=== PATIENT | male | born 1970 | race Caucasian/White ===

== ENCOUNTER 2018-07-06 10:33 | Observation (INO) | payer MEDICARE ==
[~2018-07-06] VITALS: Ht 190.5 cm; Wt 149.7 kg
--- NOTE | 2018-07-06 11:09 | PHYS DOC ---
Past Medical History Additional Past Medical Histor: muscular dystrophy Past Surgical History: No Surgical History Alcohol Use: None Drug Use: None Adult General Chief Complaint Chief Complaint: SWALLOWED FORIEGN BODY HPI HPI Patient is a 47 year old male who presents with difficulty swallowing. He took a large size [id number] antiallergy medicine yesterday evening and has been having difficulty swallowing ever since. Patient reports he is unable to swallow his saliva. Patient was exposed to dust and cat dander yesterday triggering the need for the allergy tablet. This is not happen to him before. Patient denies any difficulty breathing. Denies any nausea or vomiting or diarrhea. He has a history of having had previous esophageal dilation.[] Review of Systems Review of Systems Constitutional: Denies fever or chills [] Eyes: Denies change in visual acuity, redness, or eye pain [] HENT: Denies nasal congestion or sore throat [] Respiratory: Denies cough or shortness of breath [] Cardiovascular: No additional information not addressed in HPI [] GI: Denies abdominal pain, nausea, vomiting, bloody stools or diarrhea [] : Denies dysuria or hematuria [] Musculoskeletal: Denies back pain or joint pain [] Integument: Denies rash or skin lesions [] Neurologic: Denies headache, focal weakness or sensory changes [] Endocrine: Denies polyuria or polydipsia [] All other systems were reviewed and found to be within normal limits, except as documented in this note. Current Medications Current Medications Current Medications Medications (Trade) Dose Ordered Sig/Jennifer Start Time Stop Time Status Last Admin Dose Admin Citric Acid/ Sodium Citrate (Bicitra) 30 ml 1X ONCE 07/06/18 11:45 07/06/18 11:48 DC 07/06/18 12:11 30 ML Glucagon (Glucagen) 1 mg 1X ONCE 07/06/18 12:45 07/06/18 12:46 DC 07/06/18 12:52 1 MG Simethicone (Mylicon Drops) 160 mg 1X STAT 07/06/18 11:36 07/06/18 11:50 DC 07/06/18 12:12 160 MG Simethicone/ Sodium Bicarb/ Citric Ac (E-Z-Gas) 1 packet 1X ONCE 07/06/18 11:30 07/06/18 11:40 DC Sodium Bicarbonate (Sodium Bicarbonate) 1,300 mg 1X STAT 07/06/18 11:36 07/06/18 11:48 DC 07/06/18 12:11 1,300 MG Allergies Allergies Allergies Coded Allergies Type Severity Reaction Last Updated Verified No Known Drug Allergies 07/06/18 No Physical Exam Physical Exam Constitutional: Well developed, well nourished, no acute distress, non-toxic appearance. [] HENT: Normocephalic, atraumatic, bilateral external ears normal, oropharynx moist, no oral exudates, nose normal. [] Eyes: PERRLA, EOMI, conjunctiva normal, no discharge. [] Neck: Normal range of motion, no tenderness, supple, no stridor. [] Cardiovascular:Heart rate regular rhythm, no murmur [] Lungs & Thorax: Bilateral breath sounds clear to auscultation [] Abdomen: Bowel sounds normal, soft, no tenderness, no masses, no pulsatile masses. [] Skin: Warm, dry, no erythema, no rash. [] Back: No tenderness, no CVA tenderness. [] Extremities: No tenderness, no cyanosis, no clubbing, ROM intact, no edema. [] Neurologic: Alert and oriented X 3, normal motor function, normal sensory function, no focal deficits noted. [] Psychologic: Affect normal, judgement normal, mood normal. [] Current Patient Data Vital Signs Vital Signs Date Time Temp Pulse Resp B/P (MAP) Pulse Ox O2 Delivery O2 Flow Rate FiO2 07/06/18 11:00 96 167/87 (113) 95 07/06/18 10:50 98.4 16 Room Air 98.4 EKG EKG [] Radiology/Procedures Radiology/Procedures [] Course & Med Decision Making Course & Med Decision Making Pertinent Labs and Imaging studies reviewed. (See chart for details) ED course: Patient arrived, was placed in bed, in tolerated exam well. Attempted treatment with sodium bicarbonate, Bicitra, and simethicone as a gas forming agent. Patient did not tolerate this and no improvement in his symptoms after administration of this combination. IV access was subsequently established and he was given glucagon in an attempt to allow him to pass this foreign body again without any significant improvement. Due to this history of needing previous esophageal dilation and unable to swallow his saliva after multiple medication attempts, consultation was made with his primary care physician for admission. Consultation was also made with GI, Dr. Doshi, who evaluated the patient in the emergency department and is taking the patient to the EGD suite.[] Dragon Disclaimer Dragon Disclaimer This electronic medical record was generated, in whole or in part, using a voice recognition dictation system. Departure Departure Impression: Primary Impression: Esophageal foreign body Disposition: ADMITTED INPATIENT Admitting Physician: Rolando Tee Condition: IMPROVED Referrals: Mike TEE MD (PCP) Problem Qualifiers Primary Impression: Esophageal foreign body Encounter type: initial encounter Qualified Codes: T18.108A - Unspecified foreign body in esophagus causing other injury, initial encounter BELGICAVAN QIU Jul 06, 2018 11:09
[2018-07-06] MEDS ORDERED: SIMETHICONE/SOD BICARB/CITRIC ACID PACKET. PO ONE (11:30)
[2018-07-06] MEDS ORDERED: SIMETHICONE DROPS 40 MG/0.6 ML ORAL SUSPENSION. PO STA (11:36)
[2018-07-06] MEDS ORDERED: SODIUM BICARBONATE 650 MG TABLET. PO STA (11:36)
[2018-07-06] MEDS ORDERED: CITRIC ACID/SODIUM CITRATE 30 ML SOLUTION. PO ONE (11:45)
[2018-07-06] MEDS ORDERED: GLUCAGON,HUMAN RECOMBINANT 1 MG/ML VIAL. IV ONE (12:45)
[2018-07-06] MEDS ORDERED: ONDANSETRON PF 4 MG/2 ML VIAL. IV PRN (14:00)
[2018-07-06] MEDS ORDERED: PROPOFOL 20 ML IV ONE (14:39)
[2018-07-06] MEDS ORDERED: SUCCINYLCHOLINE 200 MG/10 ML VIAL. ONE (14:39)
[2018-07-06] MEDS ORDERED: DEXAMETHASONE SOD PHOS 20 MG/5 ML VIAL. ONE (14:39)
[2018-07-06] MEDS ORDERED: ONDANSETRON PF 4 MG/2 ML VIAL. ONE (14:39)
[2018-07-06] MEDS ORDERED: FAMOTIDINE 20 MG/2 ML VIAL ONE (14:39)
[2018-07-06] MEDS ORDERED: LIDOCAINE 2% PF 5 ML VIAL. ONE (14:39)
[2018-07-06] MEDS ORDERED: METF500T16 PO (14:54)
[2018-07-06] MEDS ORDERED: METO-239 PO (14:56)
[2018-07-06] MEDS ORDERED: LISI-130 PO (14:56)
[2018-07-06] MEDS ORDERED: GLIM2TAB2 PO (14:57)
[2018-07-06] MEDS ORDERED: IV RINGERS,LACTATED 1000ML 1,000 ML IV SCH (16:00)
[2018-07-06 16:14] VITALS: BP 137/81
--- NOTE | 2018-07-06 16:19 | PDOC2 ---
GI CONSULT Reason For Consult: Foreign body in the esophagus. HPI: HPI: Delfino Woodward is a 47 years old male patient with past medical history of morbid obesity, hypertension sleep apnea on CPAP and muscular dystrophy involving the shoulders and left lower extremity. He also reports to have intermittent dysphagia for several years that required upper endoscopic exam 1 5 years ago. He presented to ED today with foreign body in the esophagus. He reports he was taking "allergy pill" last night and he felt like it "impacted in the food pipe ". He has not been able to swallow any thing including his own secretion. He has been spiting and drooling of saliva since then. He has exertional sob but denies chest pain or PND. No fever, chills or sweating. He has reflux symptoms at base line and has been taking acid suppressions pills on and off. He has a good appetite and has not lost weight. He denies childhood asthma but reports to have history of seasonal allergies. He denies family history of esophageal or stomach cancer. He has strong family history of asthma. PMH: PMH: Morbid obesity,obstructive sleep apnea, hypertension and muscular dystrophy. FH: Family History: CAD, Other (Asthma) Social History: Smoke: No ROS: GEN: Denies fevers, chills, sweats HEENT: Denies blurred vision, sore throat CV: Denies chest pain RESP: Denies shortness of air, cough GI: Per HPI : Denies hematuria, dysuria ENDO: Denies weight changes NEURO: Denies confusion, dizziness MSK: Denies weakness, joint pain/swelling SKIN: Denies jaundice, pruritus Vitals: Vitals: Vital Signs Date Time Temp Pulse Resp B/P (MAP) Pulse Ox O2 Delivery O2 Flow Rate FiO2 07/06/18 15:44 97.5 94 16 136/98 99 Simple Mask 10 97.5 Allergies: Coded Allergies: No Known Drug Allergies (Unverified , 07/06/18) Medications: Current Medications Medications (Trade) Dose Ordered Sig/Jennifer Route PRN Reason Start Time Stop Time Status Last Admin Dose Admin Sodium Bicarbonate (Sodium Bicarbonate) 1,300 mg 1X STAT PO 07/06/18 11:36 07/06/18 11:48 DC 07/06/18 12:11 Citric Acid/ Sodium Citrate (Bicitra) 30 ml 1X ONCE PO 07/06/18 11:45 07/06/18 11:48 DC 07/06/18 12:11 Simethicone (Mylicon Drops) 160 mg 1X STAT PO 07/06/18 11:36 07/06/18 11:50 DC 07/06/18 12:12 Glucagon (Glucagen) 1 mg 1X ONCE IV 07/06/18 12:45 07/06/18 12:46 DC 07/06/18 12:52 Ringer's Solution 1,000 ml @ 75 mls/hr [id number] IV 07/06/18 16:00 07/06/18 15:20 PE: GEN: NAD HEENT: Atraumatic, PERRLA LUNGS: CTAB. CHEST: No surgical emphysema or subcutaneous crepitation. HEART: RRR, no murmurs ABD: NABS, S/ND/NT, no masses EXTREMITY: No edema SKIN: No rashes, no jaundice NEURO/PSYCH: A & O 3 A/P: A/P: 47 years old male patient with past medical history of morbid obesity, hypertension sleep apnea on CPAP and muscular dystrophy involving the shoulders and left lower extremity. He presented with foreign body impaction in the esophagus. Recommendations: - Keep patient NPO. - Proceed with urgent upper endoscopic exam. I have discussed the possible complications of EGD including but not limited to aspirations, bleeding and perforations. - We will give further recs based on upper endoscopic findings. Thank you for involving us in the care of this interesting patient. PHILLIP JOHNSON MD Jul 06, 2018 16:19
--- NOTE | 2018-07-06 16:34 | PDOC4 ---
PROCEDURE Procedure Procedure: Urgent EGD. Indications: Foreign body impaction in the esophagus. Medication: General anesthesia. Findings - After patient was sedated and intubated, the scope was advanced carefully to the esophagus. - The upper and mid third esophagus appeared normal with no evidence of inflammations, strictures, masses or foreign body. Biopsies obtained from distal and proximal esophagus to rule out EoE. - There was evidence of Grade A esophagitis in the distal esophagus but no stricture or mass was noted. - The scop was advanced to stomach with no significant resistance. There was evidence of large white pill in the gastric fundus on retroflexion.The entire gastric mucosa appeared normal. No inflammations, ulcerations or masses seen. Recommendations - Protonix 40mg BID for 12 weeks. - Full liquid diets at this time. - Antireflux measures. - Await pathology report. - F/u with me in clinic in two weeks. - Can be discharged home. Patient and family advised that he should not operate any motorized vehicle today. He should also be advised not to drink alcohol. Thank you for involving us in the care of this interesting patient. PHILLIP JOHNSON MD Jul 06, 2018 16:34
--- NOTE | 2018-07-06 18:23 | NUR ---
Please refer to GI operative notes regarding discharge
--- NOTE | 2018-07-08 17:07 | PATHOLOGY ---
[facility] Accession Number: [id number] . 01 Material submitted: . PART A: DISTAL ESOPHAGUS BIOPSY PART B: PROXIMAL ESOPHAGUS BIOPSY . 01 Clinical history: . Dysphagia, FBR . 02 Diagnosis: A. Esophageal biopsy, distal esophagus: - Segments of mildly hyperplastic squamous esophageal mucosa. . B. Esophageal biopsy, proximal esophagus: - Segments of mildly hyperplastic squamous esophageal mucosa with few intraepithelial eosinophils. (JPM:jordan; 07/08/2018) QMS/07/08/2018 . 02 Comment: Sections of the distal esophageal biopsy reveal segments of mildly hyperplastic squamous esophageal mucosa. Focally, there are a few intraepithelial neutrophils and eosinophils. The findings are consistent with reflux esophagitis. There is no evidence of an eosinophilic esophagitis. There is no evidence of Monge's change, dysplasia, or malignancy. . Sections of the proximal esophageal biopsy reveal segments of tangentially oriented, mildly hyperplastic squamous esophageal mucosa. There are a few intraepithelial eosinophils. In the area of highest concentration, there are less than 10 eosinophils per high power field. The findings are consistent with reflux esophagitis. There is no evidence of an eosinophilic esophagitis. (JPM:jordan; 07/08/2018) . 02 Electronically signed: . Waldo Donovan MD, Pathologist NPI- [id number] . 01 Gross description: . A. Received in formalin labeled "Delfino Woodward, distal esophagus BX," are 2 segments of guzman soft tissue measuring 0.6 x 0.2 x 0.1 cm in aggregate dimensions and measuring 0.3 cm each in maximum dimension. The specimen is submitted entirely in cassette A1. . B. Received in formalin labeled "Delfino Woodward, proximal esophagus BX," are 3 segments of guzman soft tissue measuring 0.5 x 0.4 x 0.1 cm in aggregate dimensions and ranging from 0.3 to 0.4 cm in maximum dimension. The specimen is submitted entirely in cassette B1. (TSD; 07/07/2018) TOB/TOB . 02 Pathologist provided ICD-10: R13.10 . 02 CPT . 267545, [id number] Specimen Comment: A courtesy copy of this report has been sent to Specimen Comment: [phone], , . Specimen Comment: Report sent to ,DR TEE / DR LINDO Specimen Comment: A duplicate report has been generated due to demographic updates. Performed at: 01 [facility] [address], [place] [id number] MD Gavin Castaneda MD Phone: [phone] Performed at: 02 [facility] [address] [place], [place] [id number] MD Waldo Donovan MD Phone: [phone]
== END 2018-07-06 18:24 | disposition home or self-care (01) ==
LOC: ER 10:33 → 5 SOUTH 14:36
PROVIDERS: ADMIT Family Medicine; ATTEND Family Medicine
DX: T18.108A Unspecified foreign body in esophagus causing other injury, initial encounter (principal); X58.XXXA Exposure to other specified factors, initial encounter; Y93.89 Activity, other specified; Y92.89 Other specified places as the place of occurrence of the external cause; K20.9 Esophagitis, unspecified; I10 Essential (primary) hypertension; G47.33 Obstructive sleep apnea (adult) (pediatric); G71.00 Muscular dystrophy, unspecified; Z82.49 Family history of ischemic heart disease and other diseases of the circulatory system; Z82.5 Family history of asthma and other chronic lower respiratory diseases
CPT/HCPCS: 43239; 88305; 96374; 99284; G0378; G0379; J0330; J1100; J1610; J2001; J2405; J2704; J3490; 43247; J7120

== ENCOUNTER 2020-11-28 06:33 | Emergency (ER) | payer MEDICARE, BC ==
[~2020-11-28] VITALS: Ht 193 cm; Wt 159.0 kg
[~2020-11-28 06:33] MED LIST: GLIM2TAB7 PO; LISI-130 PO; METF500T16 PO; METO-239 PO
[2020-11-28] MEDS ORDERED: LEVO50TA78 PO (07:18)
[2020-11-28] MEDS ORDERED: OMEP40CA7 PO (07:18)
[2020-11-28] MEDS ORDERED: LISI1TAB20 PO (07:18)
[2020-11-28] MEDS ORDERED: BREO (07:18)
[2020-11-28] MEDS ORDERED: [UNRECOGNIZED DRUG - CODE] (07:18)
[2020-11-28] MEDS ORDERED: INSU100I32 SQ (07:18)
--- NOTE | 2020-11-28 08:09 | RAD ---
EXAM: Chest, single view. HISTORY: Shortness of breath. COMPARISON: None. FINDINGS: A frontal view of the chest is obtained. There is mild diffuse increased interstitial opaci ty. There are trace pleural effusions. There is no pneumothorax. The heart is normal in size. IMPRESSION: Mild diffuse increased interstitial opacity with trace pleural effusions. No consolidated infiltrate is seen. Electronically signed by: Suad Walker MD (11/28/2020 8:07 AM) [id number]
--- NOTE | 2020-11-28 08:17 | ED.ADGEN ---
Past Medical History Additional Past Medical Histor: Facioscapulohumeral muscular dystrophy (FSHD)MS Past Surgical History: No Surgical History Smoking Status: Never Smoker Alcohol Use: None Drug Use: None General Adult EDM: Chief Complaint: ABDOMINAL PAIN HPI: HPI: Patient is a 50-year-old male with past medical history of muscular dystrophy who presents to the emergency room complaining of bilateral upper abdominal pain. Patient states that he woke up around 4:00 this morning and relates that he was having pain. He states that the pain really only happens when he takes a deep breath but it occurs on both sides of his chest. He states he felt fine when he went to bed last night. He denies any cough, congestion, chest pain, shortness of breath, nausea, vomiting, diarrhea, fever, chills, sweats. He is never had pain like this previously. He states that it feels like a sharp sudden pain. He states the pain goes away if he relaxes. Review of Systems: Review of Systems: Complete ROS is negative unless otherwise documented in HPI Current Medications: Current Medications Medications (Trade) Dose Ordered Sig/Jennifer Start Time Stop Time Status Last Admin Dose Admin Ceftriaxone Sodium (Rocephin) 1 gm 1X ONCE 11/28/20 13:00 11/28/20 13:01 Dexamethasone Sodium Phosphate (Decadron) 10 mg 1X ONCE 11/28/20 13:00 11/28/20 13:01 Ketorolac Tromethamine (Toradol 30mg Vial) 30 mg 1X ONCE 11/28/20 13:00 11/28/20 13:01 Sodium Chloride 1,000 ml @ 1,000 mls/hr 1X ONCE 11/28/20 11:00 11/28/20 11:59 DC 11/28/20 11:02 1,000 MLS/HR Allergies: Allergies: Allergies Coded Allergies Type Severity Reaction Last Updated Verified No Known Drug Allergies 07/06/18 No Physical Exam: PE: General: Awake, alert, NAD. Well Nourished, well hydrated. Cooperative HEENT: Atraumatic, EOMI, PERRL, airway patent, moist oral mucosa Neck: Supple, trachea midline Respiratory: CTA bilaterally, normal effort, no wheezing/crackles CV: Tachycardia, no murmur, cap refill <2 GI: Soft, nondistended, nontender, no masses MSK: No obvious deformities Skin: Warm, dry, intact Neuro: A&O x3, speech NL, sensory and motor grossly intact, no focal deficits Psych: Normal affect, normal mood, not suicidal or homicidal Current Patient Data: Labs: Laboratory Tests Test 11/28/20 07:40 11/28/20 11:08 White Blood Count 12.5 x10^3/uL (4.0-11.0) H Red Blood Count 5.04 x10^6/uL (4.30-5.70) Hemoglobin 15.7 g/dL (13.0-17.5) Hematocrit 46.2 % (39.0-53.0) Mean Corpuscular Volume 92 fL (79-100) Mean Corpuscular Hemoglobin 31 pg (25-35) Mean Corpuscular Hemoglobin Concent 34 g/dL (31-37) Red Cell Distribution Width 14.6 % (11.5-14.5) H Platelet Count 220 x10^3/uL (140-400) Neutrophils (%) (Auto) 66 % (31-73) Lymphocytes (%) (Auto) 23 % (24-48) L Monocytes (%) (Auto) 8 % (0-9) Eosinophils (%) (Auto) 2 % (0-3) Basophils (%) (Auto) 0 % (0-3) Neutrophils # (Auto) 8.3 x10^3/uL (1.8-7.7) H Lymphocytes # (Auto) 2.9 x10^3/uL (1.0-4.8) Monocytes # (Auto) 0.9 x10^3/uL (0.0-1.1) Eosinophils # (Auto) 0.3 x10^3/uL (0.0-0.7) Basophils # (Auto) 0.0 x10^3/uL (0.0-0.2) D-Dimer (Sindhu) 0.36 ug/mlFEU (0.00-0.50) Sodium Level 138 mmol/L (136-145) Potassium Level 3.1 mmol/L (3.5-5.1) L Chloride Level 98 mmol/L (98-107) Carbon Dioxide Level 35 mmol/L (21-32) H Anion Gap 5 (6-14) L Blood Urea Nitrogen 12 mg/dL (8-26) Creatinine 0.4 mg/dL (0.7-1.3) L Estimated GFR (Cockcroft-Gault) 229.6 BUN/Creatinine Ratio 30 (6-20) H Glucose Level 197 mg/dL (70-99) H Calcium Level 9.4 mg/dL (8.5-10.1) Total Bilirubin 0.6 mg/dL (0.2-1.0) Aspartate Amino Transferase (AST) 37 U/L (15-37) Alanine Aminotransferase (ALT) 84 U/L (16-63) H Alkaline Phosphatase 51 U/L (46-116) Troponin I Quantitative < 0.017 ng/mL (0.000-0.055) Total Protein 7.3 g/dL (6.4-8.2) Albumin 3.6 g/dL (3.4-5.0) Albumin/Globulin Ratio 1.0 (1.0-1.7) Lipase 203 U/L (73-393) Urine Collection Type Void Urine Color Yellow Urine Clarity Clear Urine pH 5.5 (<5.0-8.0) Urine Specific Nezperce >=1.030 (1.000-1.030) Urine Protein Negative mg/dL (NEG-TRACE) Urine Glucose (UA) >=1000 mg/dL (NEG) Urine Ketones (Stick) >=80 mg/dL (NEG) Urine Blood Negative (NEG) Urine Nitrite Negative (NEG) Urine Bilirubin Small (NEG) Urine Urobilinogen Dipstick 1.0 mg/dL (0.2 mg/dL) Urine Leukocyte Esterase Negative (NEG) Urine RBC Rare /HPF (0-2) Urine WBC Occ /HPF (0-4) Urine Squamous Epithelial Cells Mod /LPF Urine Bacteria 0 /HPF (0-FEW) Urine Hyaline Casts Occasional /HPF Urine Mucus Mod /LPF Laboratory Tests 11/28/20 07:40 Laboratory Tests 11/28/20 07:40 Vital Signs: Vital Signs Date Time Temp Pulse Resp B/P (MAP) Pulse Ox O2 Delivery O2 Flow Rate FiO2 11/28/20 06:33 98.6 109 18 167/79 (99) 94 Room Air 98.6 EKG: EKG: [] Heart Score: C/O Chest Pain: N/A Risk Factors: Risk Factors: DM, Current or recent (<one month) smoker, HTN, HLP, family history of CAD, obesity. Risk Scores: Score 0 - 3: 2.5% MACE over next 6 weeks - Discharge Home Score 4 - 6: 20.3% MACE over next 6 weeks - Admit for Clinical Observation Score 7 - 10: 72.7% MACE over next 6 weeks - Early Invasive Strategies Radiology/Procedures: Radiology/Procedures: [] Course & Med Decision Making: Course & Med Decision Making Pertinent Labs and Imaging studies reviewed. (See chart for details) Patient is a 50-year-old male presents to the emergency room with bilateral upper abdominal pain when he takes deep breath. Patient's presentation may be related to the abdomen, however pain could be related to the lower parts of the lungs given that his pain is only with deep breaths. Chest x-ray, EKG, troponin, D-dimer were done to evaluate for any cardiothoracic pathology including pulmonary embolism, ACS, pneumonia. Abdominal lab work including liver enzymes, lipase, UA were done to evaluate for any abdominal pathology including pancreatitis, acute cholecystitis, hepatitis. Patient does not want anything for pain at this time. EKG shows sinus tachycardia without signs of a STEMI. He does have some chronic changes. He did have a mildly elevated ALT. Attempted to do an ultrasound which was nondiagnostic. CT abdomen pelvis was done which appears to be normal at this time. Patient does appear to have bilateral infiltrates. This is concerning for possible pneumonia. Patient remains tachycardic here in the emergency room. D-dimer is negative. Did give him a liter of fluids due to the dehydration and ketones in his urine, however This Did Not Seem to Improve His Symptoms. We will start him on Rocephin. He has a pending Covid test. Patient will also be given Decadron. He will be admitted to Dr. Flores. Asael Disclaimer: Asael Disclaimer: This electronic medical record was generated, in whole or in part, using a voice recognition dictation system. Departure Departure Impression: Primary Impression: Pneumonia Additional Impressions: Sepsis Person under investigation for COVID-19 Disposition: ADMITTED INPATIENT Condition: STABLE Referrals: Mike TEE MD (PCP) Problem Qualifiers LEONIDAS TORRES MD Nov 28, 2020 08:17
[2020-11-28 08:23] LABS: CALCIUM 9.4 mg/dL (8.5-10.1); CREATININE 0.4 mg/dL (0.7-1.3); GFR 229.6; POTASSIUM 3.1 mmol/L (3.5-5.1)
[2020-11-28 08:27] LABS: BASO % 0 % (0-3); EOS # 0.3 x10^3/uL (0.0-0.7); EOS % 2 % (0-3); HEMATOCRIT 46.2 % (39.0-53.0); HEMOGLOBIN 15.7 g/dL (13.0-17.5); LYMPH # 2.9 x10^3/uL (1.0-4.8); LYMPH % 23 % (24-48); MEAN CORPUSCULAR HEMOGLOBIN 31 pg (25-35); MEAN CORPUSCULAR HGB CONC 34 g/dL (31-37); MEAN CORPUSCULAR VOLUME 92 fL (79-100); MONO # 0.9 x10^3/uL (0.0-1.1); MONO % 8 % (0-9); NEUT # 8.3 x10^3/uL (1.8-7.7); NEUT % 66 % (31-73); PLATELET COUNT 220 x10^3/uL (140-400); RED BLOOD COUNT 5.04 x10^6/uL (4.30-5.70); RED CELL DISTRIBUTION WIDTH 14.6 % (11.5-14.5); WHITE BLOOD COUNT 12.5 x10^3/uL (4.0-11.0)
[2020-11-28 08:29] LABS: ALBUMIN 3.6 g/dL (3.4-5.0); TOTAL BILIRUBIN 0.6 mg/dL (0.2-1.0); TOTAL PROTEIN 7.3 g/dL (6.4-8.2)
--- NOTE | 2020-11-28 09:56 | RAD ---
EXAM: Abdomen sonogram. HISTORY: Right upper quadrant pain. Abnormal liver function laboratory values. TECHNIQUE: Sonographic imaging of the abdomen was performed. COMPARISON: None. FINDINGS: The exam is limited due to bowel gas. There is hepatic steatosis and suspected mild hepatom egaly. No focal hepatic lesion is seen. The gallbladder, common bile duct, inferior vena cava and martinez creas are obscured due to bowel gas. The right kidney is unremarkable. IMPRESSION: 1. Hepatic steatosis and suspected hepatomegaly. 2. Limited evaluation due to bowel gas. Electronically signed by: Suad Walker MD (11/28/2020 9:53 AM) [id number]
[2020-11-28] MEDS ORDERED: IV NORMAL SALINE 1000ML BAG 1,000 ML IV ONE (11:00)
[2020-11-28 11:22] LABS: BILIRUBIN,URINE SMALL (NEG); CLARITY,URINE CLEAR; COLOR,URINE YELLOW; NITRITE,URINE NEGATIVE (NEG); PH,URINE 5.5 (<5.0-8.0); PROTEIN,URINE NEGATIVE (NEG-TRACE)
[2020-11-28 11:34] LABS: BACTERIA,URINE 0 /HPF (0-FEW); HYALINE CASTS, URINE OCCASIONAL /HPF; RBC,URINE RARE /HPF (0-2); WBC,URINE OCC /HPF (0-4)
--- NOTE | 2020-11-28 12:00 | RAD ---
Exam Date: 11/28/2020 11:[address] ABDOMEN+PELVIS WO Indication: Reason: upper abd pain / Spl. Instructions: / History: . TECHNIQUE: CT examination of the abdomen and pelvis was performed without oral or intravenous contra st. One or more of the following dose reduction techniques were utilized: *Automated exposure control (AEC) *Adjustment of mA and/or kV according to patient size *Use of iterative reconstruction technique *CT scan done according to ALARA, or ALARA/IMAGE GENTLY FINDINGS: The visualized lung bases demonstrate subsegmental atelectasis. The liver, gallbladder, spleen, pancreas, and adrenal glands are normal. The kidneys are normal bilaterally. No hydronephrosis or hydroureter is seen. No urinary tract calc robbin are seen. Urinary bladder is normal in appearance. There is no bowel obstruction or inflammation. No evidence of acute appendicitis. No significant atherosclerotic calcifications are seen. No lymphadenopathy or ascites is seen. Degenerative changes are seen in the spine. IMPRESSION: No acute intra-abdominal pathology. Normal appearance of the kidneys and bladder. No hydronephrosis or hydroureter. No urinary tract ca lculi. Bibasilar subsegmental atelectasis noted. Electronically signed by: Ron Blevins MD (11/28/2020 11:58 AM) [id number]
[2020-11-28] MEDS ORDERED: cefTRIAXone IV Push 1 GM VIAL. IVP ONE ×2 (12:15→13:00)
[2020-11-28] MEDS ORDERED: DEXAMETHASONE SOD PHOS 4 MG/ML VIAL IVP ONE (13:00)
[2020-11-28] MEDS ORDERED: KETOROLAC 30 MG/ML VIAL. IVP ONE (13:00)
[2020-11-28 14:03] LABS: BASE EXCESS COOX 6 mmol/L (-3-3); HCO3 COOX 30 mmol/L (21-28); METHEMOGLOBIN 0.4 % (0.0-1.9); OXYHEMOGLOBIN 91.2 %; PCO2 COOX 44 mmHg (35-46); PO2 COOX 61 mmHg (75-108); SAT O2 COOX 92 % (92-99)
[2020-11-28] MEDS ORDERED: FLUT1AER2 (16:12)
[2020-11-28 16:52] VITALS: BP 137/83
--- NOTE | 2020-11-28 20:55 | HP ---
ADMIT DATE: 11/28/2020 CHIEF COMPLAINT: Abdominal pain. HISTORY OF PRESENT ILLNESS: The patient is a pleasant middle-aged male who has muscular dystrophy. He presents today with abdominal pain. Imaging studies have shown bilateral pneumonia, is also a little septic. We were concerned he could have COVID-19. He is not vaccinated. I discussed the case with ER physician. We are going to admit the patient and consult Pulmonary Medicine. PAST MEDICAL HISTORY: Muscular dystrophy, hypertension, hyperlipidemia, diabetes, was just started on insulin. ALLERGIES: None. FAMILY HISTORY: Diabetes. SOCIAL HISTORY: He does not drink, smoke or take drugs. MEDICATIONS: Medications were reviewed. Please refer to the MRAD. REVIEW OF SYSTEMS: GENERAL: He complains of weakness. SKIN: No bruising, hair changes or rashes. EYES: No blurred, double or loss of vision. NOSE AND THROAT: No history of nosebleeds, hoarseness or sore throat. HEART: No history of palpitations, chest pain or shortness of breath on exertion. LUNGS: He complains of shortness of breath. GASTROINTESTINAL: He complains of abdominal pain. GENITOURINARY: No history of frequency, urgency, hesitancy or nocturia. NEUROLOGIC: Denies history of numbness, tingling, tremor or weakness. PSYCHIATRIC: No history of panic, anxiety or depression. ENDOCRINE: No history of heat or cold intolerance, polyuria or polydipsia. EXTREMITIES: Denies muscle weakness, joint pain, pain on walking or stiffness. PHYSICAL EXAMINATION: VITALS: Within normal limits and are stable. GENERAL: No apparent distress. Alert and oriented. HEENT: Normal cephalic atraumatic, external auditory canals are patent. EYES: Extraocular muscles are intact, pupils are equally round and reactive to light and accommodation. MUSCULOSKELETAL: Well developed, well nourished, good range of motion. ENDOCRINE: No thyromegaly was palpated. LYMPHATICS: No cervical chain or axillary nodes were noted. HEMATOPOIETIC: No bruising. NECK: Supple, no JVD, no thyromegaly was noted. LUNGS: Clear to auscultation in all lung cage without rhonchi or wheezing. HEART: RRR, S1, S2 present. Peripheral pulses intact, no obvious murmurs were noted. ABDOMEN: Soft, nontender. Positive bowel sounds no organomegaly, normal bowel sounds. EXTREMITIES: Without any cyanosis, clubbing, or edema. Pedal pulses intact, Homans sign is negative. NEUROLOGIC: He is quite weak, which is consistent with his muscular dystrophy. PSYCHIATRIC: Normal affect, normal mood. Stable. SKIN: No ulcerations or rashes, good skin turgor, no jaundice. VASCULAR: Good capillary refill, neurovascular bundle appears to be intact. LABORATORY DATA: White count is 12.5. Sodium is 138, potassium 3.1, chloride 98, bicarbonate 35, BUN 12, creatinine 0.4, glucose 197. Urinalysis negative. D-dimer 0.36. Chest x-ray shows trace pleural effusion. Mild diffuse increased interstitial opacity. CT of the chest shows some bibasilar subsegmental atelectasis. Ultrasound of the abdomen shows hepatic steatosis and hepatomegaly. ASSESSMENT AND PLAN: Abdominal pain, possible pneumonia, abnormal imaging studies (please see above) in a middle-aged male who has muscular dystrophy. The patient has been admitted. We will rule out COVID-19. Consult Pulmonary Medicine. Home meds. DVT prophylaxis. Full code. Check an ABG. He got one dose of dexamethasone in the ER, got one dose of ceftriaxone in the ER. We will await to continue this until Pulmonary sees the patient. Respiratory isolation. Long-term prognosis is guarded. BARB DR: Gaye TID: [id number]
--- NOTE | 2020-11-29 10:38 | PDOC ---
PULMONARY PROGRESS NOTES DATE: 11/29/20 TIME: 10:38 Vitals Vital Signs Date Time Temp Pulse Resp B/P (MAP) Pulse Ox O2 Delivery O2 Flow Rate FiO2 11/28/20 16:52 104 29 137/83 (101) 93 Room Air Labs Laboratory Tests Test 11/28/20 07:40 11/28/20 10:56 11/28/20 11:08 11/28/20 12:48 White Blood Count 12.5 x10^3/uL (4.0-11.0) Red Blood Count 5.04 x10^6/uL (4.30-5.70) Hemoglobin 15.7 g/dL (13.0-17.5) Hematocrit 46.2 % (39.0-53.0) Mean Corpuscular Volume 92 fL (79-100) Mean Corpuscular Hemoglobin 31 pg (25-35) Mean Corpuscular Hemoglobin Concent 34 g/dL (31-37) Red Cell Distribution Width 14.6 % (11.5-14.5) Platelet Count 220 x10^3/uL (140-400) Neutrophils (%) (Auto) 66 % (31-73) Lymphocytes (%) (Auto) 23 % (24-48) Monocytes (%) (Auto) 8 % (0-9) Eosinophils (%) (Auto) 2 % (0-3) Basophils (%) (Auto) 0 % (0-3) Neutrophils # (Auto) 8.3 x10^3/uL (1.8-7.7) Lymphocytes # (Auto) 2.9 x10^3/uL (1.0-4.8) Monocytes # (Auto) 0.9 x10^3/uL (0.0-1.1) Eosinophils # (Auto) 0.3 x10^3/uL (0.0-0.7) Basophils # (Auto) 0.0 x10^3/uL (0.0-0.2) D-Dimer (Sindhu) 0.36 ug/mlFEU (0.00-0.50) Sodium Level 138 mmol/L (136-145) Potassium Level 3.1 mmol/L (3.5-5.1) Chloride Level 98 mmol/L (98-107) Carbon Dioxide Level 35 mmol/L (21-32) Anion Gap 5 (6-14) Blood Urea Nitrogen 12 mg/dL (8-26) Creatinine 0.4 mg/dL (0.7-1.3) Estimated GFR (Cockcroft-Gault) 229.6 BUN/Creatinine Ratio 30 (6-20) Glucose Level 197 mg/dL (70-99) Calcium Level 9.4 mg/dL (8.5-10.1) Total Bilirubin 0.6 mg/dL (0.2-1.0) Aspartate Amino Transf (AST/SGOT) 37 U/L (15-37) Alanine Aminotransferase (ALT/SGPT) 84 U/L (16-63) Alkaline Phosphatase 51 U/L (46-116) Troponin I Quantitative < 0.017 ng/mL (0.000-0.055) Total Protein 7.3 g/dL (6.4-8.2) Albumin 3.6 g/dL (3.4-5.0) Albumin/Globulin Ratio 1.0 (1.0-1.7) Lipase 203 U/L (73-393) SARS-CoV-2 RNA (AARON) Negative (Negative) Urine Collection Type Void Urine Color Yellow Urine Clarity Clear Urine pH 5.5 (<5.0-8.0) Urine Specific [place] >=1.030 (1.000-1.030) Urine Protein Negative mg/dL (NEG-TRACE) Urine Glucose (UA) >=1000 mg/dL (NEG) Urine Ketones (Stick) >=80 mg/dL (NEG) Urine Blood Negative (NEG) Urine Nitrite Negative (NEG) Urine Bilirubin Small (NEG) Urine Urobilinogen Dipstick 1.0 mg/dL (0.2 mg/dL) Urine Leukocyte Esterase Negative (NEG) Urine RBC Rare /HPF (0-2) Urine WBC Occ /HPF (0-4) Urine Squamous Epithelial Cells Mod /LPF Urine Bacteria 0 /HPF (0-FEW) Urine Hyaline Casts Occasional /HPF Urine Mucus Mod /LPF O2 Saturation 92 % (92-99) Arterial Blood pH 7.45 (7.35-7.45) Arterial Blood pCO2 at Patient Temp 44 mmHg (35-46) Arterial Blood pO2 at Patient Temp 61 mmHg (75-108) Arterial Blood HCO3 30 mmol/L (21-28) Arterial Blood Base Excess 6 mmol/L (-3-3) Oxyhemoglobin 91.2 % Methemoglobin 0.4 % (0.0-1.9) Carbon Monoxide, Quantitative 0.9 % (0.0-1.9) FiO2 21 Laboratory Tests Test 11/28/20 10:56 11/28/20 11:08 11/28/20 12:48 SARS-CoV-2 RNA (AARON) Negative (Negative) Urine Collection Type Void Urine Color Yellow Urine Clarity Clear Urine pH 5.5 (<5.0-8.0) Urine Specific [place] >=1.030 (1.000-1.030) Urine Protein Negative mg/dL (NEG-TRACE) Urine Glucose (UA) >=1000 mg/dL (NEG) Urine Ketones (Stick) >=80 mg/dL (NEG) Urine Blood Negative (NEG) Urine Nitrite Negative (NEG) Urine Bilirubin Small (NEG) Urine Urobilinogen Dipstick 1.0 mg/dL (0.2 mg/dL) Urine Leukocyte Esterase Negative (NEG) Urine RBC Rare /HPF (0-2) Urine WBC Occ /HPF (0-4) Urine Squamous Epithelial Cells Mod /LPF Urine Bacteria 0 /HPF (0-FEW) Urine Hyaline Casts Occasional /HPF Urine Mucus Mod /LPF O2 Saturation 92 % (92-99) Arterial Blood pH 7.45 (7.35-7.45) Arterial Blood pCO2 at Patient Temp 44 mmHg (35-46) Arterial Blood pO2 at Patient Temp 61 mmHg (75-108) Arterial Blood HCO3 30 mmol/L (21-28) Arterial Blood Base Excess 6 mmol/L (-3-3) Oxyhemoglobin 91.2 % Methemoglobin 0.4 % (0.0-1.9) Carbon Monoxide, Quantitative 0.9 % (0.0-1.9) FiO2 21 Medications Active Scripts Medications Dose Route/Sig Max Daily Dose Days Date Category Breo Ellipta 100-25 Mcg INH (Fluticasone/Vilanterol) 1 Each Blst.w.dev 11/28/20 Reported Maribell 2Nd Gen Pen Needle (Pen Needle, Diabetic) 1 Each Dis.needle UD 11/28/20 Reported Basaglar Kwikpen U-100 (Insulin Glargine,Hum.rec.anlog) 100 Unit/1 Ml Insuln.pen SQ 11/28/20 Reported Omeprazole 40 Mg Capsule.dr 1 Cap PO DAILY 11/28/20 Reported Euthyrox (Levothyroxine Sodium) 50 Mcg Tablet 1 Tab PO QAM 11/28/20 Reported Lisinopril-Hctz 20-25 Mg Tab (Lisinopril/Hydrochlorothiazide) 1 Each Tablet 1 Tab PO DAILY 11/28/20 Reported Glimepiride 2 Mg Tablet 2 Mg PO DAILY 07/06/18 Reported Lisinopril 40 Mg Tablet 40 Mg PO DAILY 07/06/18 Reported Metoprolol Succinate ( Xl ) (Metoprolol Succinate) 25 Mg Tab.er.24h 25 Mg PO DAILY 07/06/18 Reported Metformin Hcl 500 Mg Tablet 500 Mg PO BIDWMEALS 07/06/18 Reported MILADYS CUNHA MD Nov 29, 2020 10:38
--- NOTE | 2020-11-29 16:21 | NUR ---
IP: Informed pt of negative COVID results. Pt verbalized understanding.
== END 2020-11-28 14:09 | disposition admitted as inpatient to this hospital (09) ==
LOC: ER 06:33 → UNDOADMIN 12:54 → ED HOLD 12:54 → ER 14:09
DX: A41.9 Sepsis, unspecified organism (principal); Z20.822 Contact with and (suspected) exposure to COVID-19; J18.9 Pneumonia, unspecified organism
CPT/HCPCS: 36415; 36600; 71045; 74176; 76705; 80053; 81001; 82805; 83690; 84484; 85025; 85379; 93005; 96361; 96374; 96375; 99285; J0696; J1100; J1885; J7030; U0003; U0005

== ENCOUNTER → 2021-01-02 | Outpatient (CLI) | payer MEDICARE, BC ==
[~2021-01-02] MED LIST changes: +BREO; +FLUT1AER2; +INSU100I32 SQ; +LEVO50TA78 PO; +LISI1TAB20 PO; +OMEP40CA7 PO; +[UNRECOGNIZED DRUG - CODE]
--- NOTE | 2021-01-03 10:34 | SLEEP ---
DATE OF STUDY: 01/02/2021 ATTENDING PHYSICIAN: Dr. Gavin Yusuf. The patient is 50 years old who weighs 308 pounds with a BMI of 37.5. The patient's [place] score was 9. The patient underwent home sleep study performed by [facility]. Total recording time was 175 minutes. During the night of the study, the patient had 54 obstructive apneas, 28 mixed apneas, 128 hypopneas, and no central apneas. The patient's AHI was 74 per hour. Nocturnal oximetry study revealed a mean oxygen saturation of 89% with a lowest of 74%. 82 minutes were spent with oxygen saturation less than 90% and 18 minutes with saturation less than 85%. Mean heart rate 86 beats per minute. IMPRESSION: 1. Severe obstructive sleep apnea at an AHI of 74 per hour. 2. Nocturnal hypoxia secondary to obstructive sleep apnea. RECOMMENDATIONS: 1. The patient would benefit from in-lab CPAP titration study. 2. Once the patient is optimally treated with CPAP, then follow up in 4-6 weeks to assess compliance and to document clinical improvement. 3. Weight loss is advised. 4. Avoid COMPUTER SECURITY SPECIALIST depressants. 5. Cautioned regarding driving until symptoms of sleep apnea resolve with above recommendation. ALEJANDRINA DR: Ervin TID: [id number]
== END ==
LOC: RT 08:46
PROVIDERS: ATTEND Family Medicine
DX: G47.33 Obstructive sleep apnea (adult) (pediatric) (principal); R09.02 Hypoxemia
CPT/HCPCS: G0399

== ENCOUNTER → 2021-01-25 | Outpatient (CLI) | payer MEDICARE, BC ==
--- NOTE | 2021-01-26 11:18 | SLEEP ---
DATE OF STUDY: 01/25/2021 SLEEP STUDY ATTENDING PHYSICIAN: Marvin Tee MD The patient is 50 years old who weighs 308 pounds with a BMI of 42. The patient had a previous home sleep study and was found to have severe MACY at an AHI of 74 per hour. The patient returned to [facility] for in-lab titration. During the night study, the patient spent 496 minutes in bed and slept for 361 minutes with a sleep efficiency of 73%. Sleep latency was 38 minutes with a REM latency of 129 minutes. Sleep architecture showed an increase stage 1 sleep, normal stage 2 sleep, normal slow wave sleep and normal REM sleep. EKG monitoring revealed average heart rate of 79 beats per minute. No arrhythmias observed. PLMs were seen at index of 117 per hour, but only 1 per hour caused EEG arousals. The patient was started on a CPAP with a pressure of 15 cm of water and titrated up to 17 cm of water. The patient was then switched to BiPAP at a pressure of 21/17 and titrated up to 23/19. However, best results were seen at a BiPAP pressure of 21/17. The patient slept for 171 minutes. The patient had supine as well as REM sleep. The patient's AHI was reduced to 5 per hour. Oxygen saturations remained above 88%. IMPRESSION: 1. Severe obstructive sleep apnea diagnosed by home sleep study. 2. Severe periodic limb movements without any significant EEG arousals. RECOMMENDATIONS: 1. BiPAP at a pressure of 21/17 should be used on a nightly basis. 2. Follow up in 4-6 weeks to assess compliance with BiPAP and to document clinical improvement. 3. Weight loss is strongly advised. 4. Avoid BUSINESS DEVELOPMENT INTERN depressants. 5. Cautioned regarding driving until symptoms of sleep apnea resolve with the use of BiPAP. Oxygen saturations remained above 88%. The patient does not require oxygen with BiPAP. 6. PLMs does not need to be treated unless the patient has symptoms of restless legs during the day. KEN DR: Ervin TID: [id number] CC: Mike TEE MD
== END ==
LOC: RT 19:11
PROVIDERS: ATTEND Family Medicine
DX: G47.33 Obstructive sleep apnea (adult) (pediatric) (principal)
CPT/HCPCS: 95811